=== PATIENT | male | born 1945 | race Caucasian/White ===

== ENCOUNTER 2017-01-23 05:09 | Day surgery (SDC) | payer OTHER ==
[~2017-01-23] VITALS: Ht 180.3 cm; Wt 97.5 kg
--- NOTE | ~2017-01-23 | O ---
[facility] [place] [address] OPERATIVE REPORT Name: RAMESH RAMIREZ Room #: DEP [facility]..#: [id number] Admission: 01/23/17 Attend Phys: Eber Thompson MD Discharge: 01/23/17 Date of : 43 Report #: [id number] THIS REPORT FOR: //name// CC: Oni Thompson DATE OF SERVICE: 01/23/2017 PREOPERATIVE DIAGNOSIS: Tumor of left lower lid and cheek. POSTOPERATIVE DIAGNOSIS: Tumor of left lower lid and cheek. PROCEDURE: Excision of tumor of left lower lid and cheek with frozen section, control of margins and myocutaneous flap repair of defect. SURGEON: Eber Thompson M.D. EMBOSSER APPRENTICE: None. ANESTHESIA: MAC. COMPLICATIONS: None. INDICATIONS FOR SURGERY: This pleasant 71-year-old gentleman has a nodular ulcerative lesion in his central left lower lid that appears to be a basal cell carcinoma. He presents today for excision of the lesion with frozen sections and subsequent repair of that ensuing defect. Informed consent was obtained to include but not limited to the potential risk for loss of vision, bleeding, infection, failure to improve the problem, the potential need for further surgery or treatment. DESCRIPTION OF PROCEDURE: The patient was taken to the operating room where 2% Xylocaine with epinephrine mixed with equal parts of 0.75% Marcaine with Wydase was administered transcutaneously and transconjunctivally to the left lower lid and cheek. The left lateral canthus was additionally anesthetized along with the infratemporal fossa. The patient was subsequently prepped and draped in the usual sterile fashion. A fine tip skin marking pen was then utilized to outline the lesion including 1-2 mm of normal appearing tissue. The incisions were then made perpendicularly across the eyelid margin and drawn to a point around the arcus marginalis inferiorly in the premalar space. Hemostasis was achieved in the field with diligent pinpoint monopolar cautery as the specimen was oriented and passed off to the waiting pathologist. The pathologist snap froze that specimen and found that the margins appeared to be clear. One side was somewhat undulating and more difficult for him to inspect; however, he felt that the tumor had been extirpated. [address] [address] OPERATIVE REPORT Name: ASHLEYRAMESH R Room #: DEP [facility].#: [id number] Admission: 01/23/17 Attend Phys: Eber Thompson MD Discharge: 01/23/17 Date of : 43 Report #: [id number] The area was then undermined sufficiently to allow myocutaneous flap to be developed. Hemostasis was then re-achieved. The flap was then advanced and closed with multiple interrupted buried 5-0 Vicryl sutures. The tarsal plate was reapproximated with interrupted 5-0 Vicryl sutures. The eyelid margin was reapproximated with interrupted 7-0 Vicryl sutures. The subcutaneous structures and the skin were then closed with interrupted buried Vicryl sutures superficially and 6-0 plain gut sutures in the skin. The wound was then cleaned and dressed with erythromycin ophthalmic ointment. The patient subsequently transported to the recovery area having tolerated the procedures well with no anesthetic or operative complications being noted. <ELECTRONICALLY SIGNED> By: Eber Thompson MD 01/27/17 0617 [id number] [id number] Eber Thompson MD /nt
--- NOTE | ~2017-01-23 | S ---
[facility] [place] [address] SURGICAL PATH RPT PROCEDURE Name: RAMESH RAMIREZ Room #: DEP [facility].R.#: [id number] Admission: 01/23/17 Date of : 43 Discharge: 01/23/17 Report #: [id number] Path Case #: [id number] PATHOLOGY REPORT COLLECTION DATE: 01/23/2017 RECEIVED DATE: 01/23/2017 SUBMITTING PHYS: Dr. Eber Thompson OTHER PHYS: Dr. Oni Blackburn SPECIMEN(S) RECEIVED: A.Left lower lid lesion * * * * * * * * * * * * FINAL DIAGNOSIS: Eye lid, lower left, excision: - Basal cell carcinoma. - Margins uninvolved by tumor. PATHOLOGIST: Jase José M.D. REPORT ELECTRONICALLY SIGNED BY: Jase José M.D. DATE/TIME: 01/24/2017 13:10 * * * * * * * * * * * * GROSS PATHOLOGY: The specimen is received fresh from the OR for frozen section, labeled with the patient's name and "left lower lid lesion". The specimen is received oriented from the surgeon. The specimen consists of a wedge of eyelid with pink-ritchie skin measuring 0.9 x 0.8 x 0.4 cm. In the central portion of the specimen is a brown-ritchie pearly nodule measuring 0.4 cm in greatest diameter. The specimen is inked as follows: medial-blue, inferior-black, and lateral-green. The specimen is bivalved and entirely submitted in cassette A1. Three slides were cut for examination. (MAP:[facility]; 01/23/2017) FROZEN SECTION DIAGNOSIS: FROZEN SECTION DIAGNOSIS (Dr. Jase José) Left lower lid lesion: - "Margins appear negative as discussed". This diagnosis was discussed with Dr. Thompson on 01/23/2017 at 1:46 p.m. Testing performed by [facility] at [facility] [address], [place] [address] [place] [address] SURGICAL PATH RPT PROCEDURE Name: RAMESH RAMIREZ [facility] [id number] Admission: 01/23/17 Date of : 43 Discharge: 01/23/17 Report #: [id number] Path Case #: [id number] CLINICAL HISTORY: Eye lid lesion INITIAL CPT CODE(S): A; 36000, 14974 Professional services performed by [facility] at [facility] [address] [place] [address] [facility] at [address] [place] [address], [place] [address]. [facility] [address] [place] [address] PHONE: [phone] DIRECTOR: Eyal Barba M.D. * * * END OF REPORT * * *
[~2017-01-23 05:09] MED LIST: ASPIR 8181 MG PO; ATORVASTATIN CA40 MG PO; MULTI VITAMIN1 EACH PO; PRINIVIL10 MG PO; PROTONIX40 M1 PO; TRICOR145 MG PO; ZETIA10 MG PO
[2017-01-23 11:37] VITALS: BP 142/67
== END 2017-01-23 14:33 | disposition home or self-care (01) ==
LOC: TBA 05:09 → OR 05:09 → TBA 05:11 → OR 08:15
DX: C44.119 Basal cell carcinoma of skin of left eyelid, including canthus (principal); C44.319 Basal cell carcinoma of skin of other parts of face; I10 Essential (primary) hypertension; E78.5 Hyperlipidemia, unspecified; K21.9 Gastro-esophageal reflux disease without esophagitis; Z85.46 Personal history of malignant neoplasm of prostate; Z87.891 Personal history of nicotine dependence; Z90.49 Acquired absence of other specified parts of digestive tract; Z96.651 Presence of right artificial knee joint; Z98.890 Other specified postprocedural states; Z79.82 Long term (current) use of aspirin; Z79.899 Other long term (current) drug therapy
CPT/HCPCS: 50010; 50101; 50398; 51636; 56528; 56531; 62110; 62850; 70005